=== PATIENT | female | born 1980 | race Caucasian/White ===

== ENCOUNTER 2016-11-07 19:36 | Emergency (ER) | payer OTHER ==
--- NOTE | 2016-11-07 20:08 | ED CLINICAL REPORT ---
Clinical Report - Physicians/Mid Levels [facility] [address] [place] [address] 11/07/2016 19:36 Patient: PARKER AGUSTIN Time Seen: 19:44; initial patient contact, initial documentation, patient care assumed. Arrived- By private vehicle. Historian- patient. HISTORY OF PRESENT ILLNESS Chief Complaint: HEADACHE and MIGRAINE HEADACHE. Is still present. This started today. It is described as similar to previous headaches and "pain". Has had neck pain. Not located in the facial region. Located in the occipital region. At its maximum, severity described as severe. When seen in the E.D., severity described as severe. Modifying factors: relieved by nothing. Not worsened by anything. The patient has had nausea. No preceding symptoms, blurred vision, photophobia, numbness or weakness. No vomiting. No recent travel. Similar symptoms previously: Chronically, as bad. ( last headache just a few days ago). Recent medical care: Not recently seen/assessed. REVIEW OF SYSTEMS No fever, sinus pressure, ear pain, sore throat or head injury. No chest pain or difficulty breathing. All systems otherwise negative, except as recorded above. PAST HISTORY See nurses notes. IMPRESSION: 1. Negative chest. Electronically Final signed by:Jamie Zuñiga MD 11/07/2016 7:45:59 PM. SOCIAL HISTORY Never smoker. Occasional alcohol use. No drug use. No recent travel. Is a local resident. FAMILY HISTORY Negative. ADDITIONAL NOTES The nursing notes have been reviewed with agreement regarding the chief complaint, HPI, ROS, PMH and patient medications and allergies. PHYSICAL EXAM Vital Signs: 11/07/2016 19:46 BP: 118/64. HR: 73. RR: 16. O2 saturation: 100%. Temp: 98.9 F. Pain level now: 9/10. Have been reviewed as normal and appear to be correct. Appearance: Alert. No acute distress. Eyes: Pupils equal, round and reactive to light. Eyes normal inspection. ENT: Ears normal. Nose normal. Pharynx normal. Neck: Normal inspection. Neck supple. CVS: Normal heart rate and rhythm. Heart sounds normal. Pulses normal. Respiratory: No respiratory distress. Breath sounds normal. Back: Normal inspection. Skin: Skin warm and dry. Normal skin color. No rash. Normal skin turgor. Extremities: Extremities exhibit normal ROM. No lower extremity edema. Neuro: Oriented X 3. Alert. Mood/affect normal. Speech normal. Cranial nerves normal (as tested). No cerebellar findings. No motor deficit. No sensory deficit. PROGRESS AND PROCEDURES Patient counseled in person regarding the patient's stable condition and diagnosis. 20:08. Differential Diagnosis: I considered migraine, cluster headache, subarachnoid hemorrhage, intracranial bleed, vascular malformation, cerebral aneurysm, vascular dissection, vasculitis, temporal arteritis, influenza, viral syndrome, carbon monoxide exposure, analgesic abuse, hypoglycemia and trigeminal neuralgia as a possible cause of headache in this patient. This is a partial list of diagnoses considered. Above considerations are based on history and physical exam. Differential diagnosis was discussed with patient. Disposition: Discharged home in good and improved condition (20:08). Condition: good and stable. CLINICAL IMPRESSION Episodic, poorly controlled headache. INSTRUCTIONS Warnings: GENERAL WARNINGS: Return or contact your physician immediately if your condition worsens or changes unexpectedly, if not improving as expected, or if other problems arise. SPECIFICALLY, return if you develop fever, vomiting, numbness, weakness, difficulty thinking, visual disturbances, fainting or extreme fatigue. Follow-up: Follow up with your doctor in about three days even if well. Call for an appointment. Summary of care provided to patient. Understanding of the discharge instructions verbalized by patient. (Electronically signed by Shannon Galindo A.R.N.P. 11/07/2016 22:28)
--- NOTE | 2016-11-07 20:09 | ED NURSING NOTES ---
Clinical Report - Nurses [facility] [address] [place] [address] 11/07/2016 19:36 Patient: PARKER AGUSTIN TRIAGE Triage time 19:46 Nov 07 2016. Acuity: LEVEL 4. Chief Complaint: HEADACHE and MIGRAINE HEADACHE. LASHAUN COMA SCORE: Lashaun Coma Scale: 15- eyes open spontaneously (4); best verbal response- oriented x 4 (5); best motor response- obeys commands (6). --19:50 Maisha Chau R.N. 19:45 11/07/16. BP: 118/64. HR: 73. RR: 16. O2 saturation: 100%. Temp: 98.9 F. Pain level now: 06/21. --19:50 Maisha Chau R.N. Weight: 104.3 kg stated. Height/Length: 69 inches. BMI: 34. --19:45 Maisha Chau R.N. Medications Imitrex Oral. --19:46 Maisha Chau R.N. Propranolol HCl ER Oral. --19:46 Maisha Chau R.N. Ibuprofen Oral. --19:46 Maisha Chau R.N. Medication/allergy information source: the patient. --19:50 Maisha Chau R.N. Allergies Penicillins. --19:47 Maisha Chau R.N. History Arrived by private vehicle, and accompanied by family. This started today 1 PM. She has had nausea. SOCIAL HX: Never smoker. Occasional alcohol use. No drug use. No recent travel. No known contact with a sick individual. ABUSE ASSESSMENT: No report of abuse. SELF HARM ASSESSMENT: A self harm assessment was performed. The patient answered "no" to the question "Have you recently felt down, depressed, or hopeless?", "Have you noticed less interest or pleasure in doing things?", "Do you have thoughts of harming or killing yourself?", "Are you here because you tried to hurt yourself?", "Have you ever tried to hurt yourself before today?", "Have you recently had thoughts about harming or killing others?" and "Do you have any dangerous items in your possession?". FALL RISK ASSESSMENT: Fall risk assessment completed. No fall risk identified. NUTRITIONAL RISK ASSESSMENT: The nutritional risk assessment revealed no deficiencies. FUNCTIONAL ASSESSMENT: Functional assessment: no impairments noted. LEARNING NEEDS ASSESSMENT: The learning needs assessment revealed no barriers. SKIN INTEGRITY ASSESSMENT: Skin integrity risk assessment completed. No skin integrity risk identified. --19:50 Maisha Chau R.N. PROBLEMS: Tension-Type Headache. Headache. Rt ankle pain . Knee pain chronic rt . --19:47 Maisha Chau R.N. ADDITIONAL SURGERIES: no known surgeries. Interventions ID band on patient. --19:50 Maisha Chau R.N. PHYSICAL ASSESSMENT 19:53 11/07/16. Ambulatory to room. GENERAL / NEURO / PSYCH: Alert. Oriented X 4. Speech within normal limits. HEENT: No facial asymmetry noted. Pupils equal, round and reactive to light. RESPIRATORY: Breath sounds within normal limits. CVS: Capillary refill less than 2 seconds. GI / : Abdomen soft and nontender. SKIN: Skin is warm and dry. --19:53 Maisha Chau R.N. NURSING PROGRESS NOTES 19:48 11/07/16. The initial plan of care for this patient includes an assessment with efforts to address the presence of pain; impairment of the neurological system. This plan of care was discussed with the patient. Patient gowned. Reassurance given. Lights dimmed. Patient ready for evaluation. --19:52 Maisha Chau R.N. 20:03 11/07/2016 Toradol (Ketorolac Tromethamine) IM 60 mg given. Given in the right gluteus bry. Allergies verified and confirmed 5 rights. --20:05 Maisha Chau R.N. 20:03 11/07/2016 Benadryl (DiphenhydrAMINE HCl) IM 50 mg given. Given in the right deltoid. Allergies verified, confirmed 5 rights and sedative warning given to the patient and patient's family. --20:05 Maisha Chau R.N. 20:03 11/07/2016 Reglan (Metoclopramide HCl) IM 10 mg given. Given in the left gluteus bry. Allergies verified and confirmed 5 rights. --20:06 Maisha Chau R.N. 20:21 11/07/16. Reassessment after medication administered. She is calm and resting quietly and has had no adverse reaction. RESPIRATORY: No respiratory distress. --20:21 Maisha Chau R.N. DISPOSITION / DISCHARGE 20:24 11/07/16. Condition at departure: improved and stable. The goals identified in the patient's plan of care were met. No learning barriers present. Discharge instructions provided and reviewed with the patient and spouse. Reviewed referral to a primary care physician for followup. Patient verbalized understanding. Written instructions provided in Telugu. The patient was discharged home and accompanied by spouse. She left the Emergency Department ambulatory and via private vehicle. Spouse driving. --20:24 Maisha Chau R.N. 20:24 11/07/16. BP: 116/47. HR: 76. RR: 20. O2 saturation: 96%. Temp: 98.9 F. Pain level now 7/10. --20:24 Maisha hCau R.N. Departure time: 20:24 Nov 07 2016. --20:24 Maisha Chau R.N. Locked/Released at 11/07/2016 20:25 by Maisha Chau R.N.
--- NOTE | 2016-11-07 20:09 | ED ORDER SUMMARY ---
..... Patient: PARKER AGUSTIN OrderSheet [facility] VisitID: [id number] [address] [place] [address] 35y, F Registration Date/Time: 11/07/2016 ORDER SHEET Weight: 104.3 kg (stated) Allergies: Penicillins GENERAL ORDERS: MEDICATION ORDERS: Toradol IM 60 mg (NOW) (19:54 11/07/2016 HBivens A.R.N.P.) (20:05 EInderbitzen R.N.) Benadryl IM 50 mg (NOW) (:11/07/2016 HBivens A.R.N.P.) (20:05 EInderbitzen R.N.) - (Reglan 10mg im stat please) (:54 11/07/2016 HBivens A.R.N.P.) (20:06 EInderbitzen R.N.) IV FLUIDS: ORDER SHEET NOTES: [Electronically signed by Maisha Chau R.N. (20:11/07/2016)] [Electronically signed by Shannon Galindo.R.N.P. (22:28 11/07/2016)] [Electronically locked/signed by Maisha Chau R.N. (:11/07/2016)]
--- NOTE | 2016-11-07 20:09 | ED ORDER SUMMARY ---
..... Patient: PARKER AGUSTIN OrderSheet [facility] VisitID: [id number] [address] [place] [address] 35y, F Registration Date/Time: 11/07/2016 ORDER SHEET Weight: 104.3 kg (stated) Allergies: Penicillins GENERAL ORDERS: MEDICATION ORDERS: Toradol IM 60 mg (NOW) (19:54 11/07/2016 HBivens A.R.N.P.) (20:05 EInderbitzen R.N.) Benadryl IM 50 mg (NOW) (:11/07/2016 HBivens A.R.N.P.) (20:05 EInderbitzen R.N.) - (Reglan 10mg im stat please) (:54 11/07/2016 HBivens A.R.N.P.) (20:06 EInderbitzen R.N.) IV FLUIDS: ORDER SHEET NOTES: [Electronically signed by Maisha Chau R.N. (20:11/07/2016)] [Electronically signed by Shannon Galindo.R.N.P. (22:28 11/07/2016)] [Electronically locked/signed by Maisha Chau R.N. (:11/07/2016)]
--- NOTE | 2016-11-07 22:29 | ED MED RECONCILIATION SUMMARY ---
Patient: PARKER AGUSTIN Medication Reconciliation Report [facility] VisitID: [id number] [address] [place] [address] 35y, F Registration Date/Time: 11/07/2016 Weight: 104.3 kg Height/Length: 69 in. BMI: 34.0 ALLERGIES: Penicillins The patient's Home Medications are listed below: THE FOLLOWING MEDICATIONS NEED TO BE RECONCILED: Ibuprofen Oral Imitrex Oral Propranolol HCl ER Oral The source(s) of the original Home Medication information: patient The following Medications were given to the patient in the Emergency Department: Toradol [IM] IM 60 mg, administered: 11/07/2016 8:03:00 PM Benadryl [IM] IM 50 mg, administered: 11/07/2016 8:03:00 PM Reglan [IM] IM 10 mg, administered: 11/07/2016 8:03:00 PM The following Medications were prescribed to the patient: None.
--- NOTE | 2016-11-07 22:29 | ED MAR SUMMARY ---
..... Medication Administration Record [facility] [address] [place] [address] Patient: PARKER AGUSTIN Visit ID: [id number] 35y, F Weight: 104.3 kg Height/Length: 69 in BMI: 34 ALLERGIES: Penicillins Given 20:03 11/07/2016 Maisha Chau R.N. Medication Administered: TORADOL [IM] (KETOROLAC TROMETHAMINE), Dose: 60 mg IM. Medication Ordered: Toradol IM 60 mg (NOW). Given 20:03 11/07/2016 Maisha Chau R.N. Medication Administered: BENADRYL [IM] (DIPHENHYDRAMINE HCL), Dose: 50 mg IM. Medication Ordered: Benadryl IM 50 mg (NOW). Given 20:03 11/07/2016 Maisha Chau R.N. Medication Administered: REGLAN [IM] (METOCLOPRAMIDE HCL), Dose: 10 mg IM. Medication Ordered: - (Reglan 10mg im stat please).
--- NOTE | 2016-11-07 22:29 | ED MED RECONCILIATION SUMMARY ---
Patient: PARKER AGUSTIN Medication Reconciliation Report [facility] VisitID: [id number] [address] [place] [address] 35y, F Registration Date/Time: 11/07/2016 Weight: 104.3 kg Height/Length: 69 in. BMI: 34.0 ALLERGIES: Penicillins The patient's Home Medications are listed below: THE FOLLOWING MEDICATIONS NEED TO BE RECONCILED: Ibuprofen Oral Imitrex Oral Propranolol HCl ER Oral The source(s) of the original Home Medication information: patient The following Medications were given to the patient in the Emergency Department: Toradol [IM] IM 60 mg, administered: 11/07/2016 8:03:00 PM Benadryl [IM] IM 50 mg, administered: 11/07/2016 8:03:00 PM Reglan [IM] IM 10 mg, administered: 11/07/2016 8:03:00 PM The following Medications were prescribed to the patient: None.
--- NOTE | 2016-11-07 22:29 | ED MAR SUMMARY ---
..... Medication Administration Record [facility] [address] [place] [address] Patient: PARKER AGUSTIN Visit ID: [id number] 35y, F Weight: 104.3 kg Height/Length: 69 in BMI: 34 ALLERGIES: Penicillins Given 20:03 11/07/2016 Maisha Chau R.N. Medication Administered: TORADOL [IM] (KETOROLAC TROMETHAMINE), Dose: 60 mg IM. Medication Ordered: Toradol IM 60 mg (NOW). Given 20:03 11/07/2016 Maisha Chau R.N. Medication Administered: BENADRYL [IM] (DIPHENHYDRAMINE HCL), Dose: 50 mg IM. Medication Ordered: Benadryl IM 50 mg (NOW). Given 20:03 11/07/2016 Maisha Chau R.N. Medication Administered: REGLAN [IM] (METOCLOPRAMIDE HCL), Dose: 10 mg IM. Medication Ordered: - (Reglan 10mg im stat please).
--- NOTE | 2016-11-07 22:29 | ED DISCHARGE INSTRUCTIONS ---
Patient: PARKER AGUSTIN General Instructions [facility] VisitID: [id number] [place] [address] 35y, F Registration Date/Time: 11/07/2016 Episodic, poorly controlled headache. INSTRUCTIONS Warnings: GENERAL WARNINGS: Return or contact your physician immediately if your condition worsens or changes unexpectedly, if not improving as expected, or if other problems arise. SPECIFICALLY, return if you develop fever, vomiting, numbness, weakness, difficulty thinking, visual disturbances, fainting or extreme fatigue. Follow-up: Follow up with your doctor in about three days even if well. Call for an appointment. Summary of care provided to patient. Understanding of the discharge instructions verbalized by patient. ADDITIONAL INFORMATION Headache [Unspecified] The cause of your headache today is not clear, but it does not appear to be the sign of any serious illness. Under stress, some people tense the muscles of their shoulder, neck and scalp without knowing it. If this condition lasts long enough, a TENSION HEADACHE can occur. A MIGRAINE HEADACHE is caused by changes in blood flow to the brain. A migraine attack may be triggered by emotional stress, hormone changes during the menstrual cycle, oral contraceptives, alcohol use, certain foods containing tyramine, eye strain, weather changes, missing meals, lack of sleep or oversleeping. Other causes of headache include a viral illness with high fever, head injury with concussion, sinus, ear or throat infection, dental pain and TMJ (jaw joint) pain. More serious but less common causes of headache include stroke, brain hemorrhage, brain tumor, meningitis and encephalitis. Home Care: If you were given pain medicine for this headache, do not drive yourself home. Arrange for a ride, instead. When you get home, try to sleep. You should feel much better when you wake up. Apply heat to the back of your neck to relieve neck muscle spasm. Migraine headaches may respond best to an ice pack on the forehead or at the base of the skull. If you are having nausea or vomiting, follow a light diet until your headache is relieved. If you have a migraine type headache, use sunglasses when in the daylight or around bright indoor lighting until symptoms improve. Bright glaring light can worsen this kind of headache. Follow Up with your doctor if the headache is not better within the next 24 hours. If you have frequent headaches you should discuss a treatment plan with your primary care doctor. By being aware of the earliest signs of headache, and starting treatment right away, you may be able to stop the pain yourself. Get Prompt Medical Attention if any of the following occur: Worsening of your head pain or no improvement within 24 hours Repeated vomiting (unable to keep liquids down) Fever of 100.4F (38C) or higher, or as directed by your healthcare provider Stiff neck Extreme drowsiness, confusion or fainting Dizziness, vertigo (dizziness with spinning sensation) Weakness of an arm or leg or one side of the face Difficulty with speech or vision You have been given the following additional information: Headache, Unspecified (Electronically signed by Shannon Galindo A.R.NTetePTete 11/07/2016 22:28)
== END 2016-11-07 20:25 | disposition home or self-care (01) ==
LOC: ED SRH 19:36
DX: G44.89 Other headache syndrome (principal)